=== PATIENT | female | born 1980 | race Caucasian/White ===

== ENCOUNTER 2021-02-14 07:51 | Inpatient (IN) ==
[2021-02-08 11:43] LABS: Basophils % 0.2 % (0.0-0.8); Eosinophils # 0.1 10*3/uL (0.0-0.87); Eosinophils % 1.3 % (0.00-10.9); Hematocrit 37.4 VOL% (35.7-47.0); Hemoglobin 11.7 GM/DL (12.0-16.0); Immature Granulocytes % 0.6 %; Immature Granulocytes Absolute 0.06 #; Lymphocytes # 2.6 10*3/uL (1.4-4.0); Lymphocytes % 28.5 % (21.3-54.2); Mean Corpuscular HGB Conc 31.3 GM/DL (32-36); Mean Corpuscular Volume 91.9 FL (87-102); Mean Platelet Volume 10.5 FL (9.6-12.0); Monocytes % 5.6 % (1.7-12.7); Neutrophils % 63.8 % (38.7-73.9); Platelet Count 272 T/CUMM (130-400); Red Blood Count 4.07 MC/CUMM (3.8-5.5); Red Cell Distribution Width 14.6 % (9.3-17.3); White Blood Count 9.2 T/CUMM (4-12)
[2021-02-08 12:03] LABS: Bilirubin,Urine Negative (Negative); Blood, Urine Negative (Negative); Glucose,Urine (UA) Negative (Negative); Ketones,Urine Negative (Negative); Nitrite,Urine Negative (Negative); Protein,Urine Negative; RBC,Urine 1 /HPF (0-4); Squamous Epithelial Cell,Urine Occasional /HPF (0-10); Urine Appearance CLEAR (Clear); Urine Color Yellow (Yellow); Urine Specific Gravity 1.019 (1.001-1.035); Urine Urobilinogen < 2.0 EU/DL (0.2-1.0)
[2021-02-08 12:06] LABS: Albumin 3.3 G/DL (3.4-5.0); Bilirubin,Total 0.4 MG/DL (0.20-1.00); Calcium 8.8 MG/DL (8.5-10.1); Osmolality,Calculated 277.7 MOS/KG (273-304); Potassium 4.2 MMOL/L (3.5-5.1); Risk Ratio 3.63; Total Protein 7.4 G/DL (6.4-8.2); VLDL Cholesterol 33.8 MG/DL
[2021-02-08 12:30] LABS: HIV Antigen/Antibody Result Nonreactive (Nonreactive)
[~2021-02-14 07:51] MED LIST: CLINDAMYCIN INJ 900 MG/50 ML PREMIX IV ONE
[2021-02-14] MEDS ORDERED: ACETAMINOPHEN 500 MG TABLET PO ONE (09:31)
[2021-02-14] MEDS ORDERED: DIAZEPAM 5 MG TABLET PO ONE (09:31)
[2021-02-14] MEDS ORDERED: LACTATED RINGERS 1,000 ML IV SCH ×2 (10:00→16:30)
[2021-02-14] MEDS ORDERED: propofoL 200 MG/20 ML VIAL IV ONE ×2 (13:43→15:08)
[2021-02-14] MEDS ORDERED: fentaNYL 100 MCG/2 ML VIAL ONE ×3 (13:43→14:31)
[2021-02-14] MEDS ORDERED: ROCURONIUM 50 MG/5 ML VIAL IV ONE (13:43)
[2021-02-14] MEDS ORDERED: LIDOCAINE 2% 5 ML VIAL ONE (13:43)
[2021-02-14] MEDS ORDERED: MIDAZOLAM 2 MG/2 ML VIAL ONE ×2 (13:43→14:00)
[2021-02-14] MEDS ORDERED: DESFLURANE 1 UNIT/15 MINUTE INH ONE (13:44)
[2021-02-14] MEDS ORDERED: SCOPOLAMINE 1.5 MG PATCH TRANSDERM ONE (13:59)
[2021-02-14] MEDS ORDERED: LACTATED RINGERS 1,000 ML IV ONE (15:06)
[2021-02-14] MEDS ORDERED: KETOROLAC 30 MG/1 ML VIAL ONE (15:29)
[2021-02-14] MEDS ORDERED: ONDANSETRON 4 MG/2 ML VIAL ONE (15:29)
[2021-02-14] MEDS ORDERED: GLYCOPYRROLATE 0.4 MG/2 ML VIAL ONE (15:31)
[2021-02-14] MEDS ORDERED: NEOSTIGMINE 10 MG/10 ML VIAL ONE (15:31)
[2021-02-14] MEDS ORDERED: HYDROmorphone 2 MG/1 ML VIAL ONE (15:48)
[2021-02-14] MEDS ORDERED: ACETAMINOPHEN 325 MG TABLET PO PRN (16:17)
[2021-02-14] MEDS ORDERED: BENZOCAINE/MENTHOL LOZENGE 18/BOX PO PRN (16:17)
[2021-02-14] MEDS ORDERED: BISACODYL 10 MG SUPP RECTAL PRN (16:17)
[2021-02-14 16:22] LABS: Bacteria,Urine Occasional /HPF (Few); Bilirubin,Urine Negative (Negative); Blood, Urine Negative (Negative); Glucose,Urine (UA) Negative (Negative); Ketones,Urine Negative (Negative); Mucus,Urine Occasional /LPF (Occasional); Nitrite,Urine Negative (Negative); Protein,Urine Negative; RBC,Urine 1 /HPF (0-4); Squamous Epithelial Cell,Urine Occasional /HPF (0-10); Urine Appearance CLEAR (Clear); Urine Color Yellow (Yellow); Urine Specific Gravity 1.018 (1.001-1.035); Urine Urobilinogen < 2.0 EU/DL (0.2-1.0)
[2021-02-14] MEDS ORDERED: MEPERIDINE 25 MG/1 ML VIAL IV PRN (16:24)
[2021-02-14] MEDS: HYDROmorphone 2 MG/1 ML VIAL IV PRN ×2 (18:40→22:17)
[2021-02-14] MEDS: ONDANSETRON 4 MG/2 ML VIAL IV PRN (18:41)
[2021-02-14] MEDS: IBUPROFEN 800 MG TABLET PO PRN (21:25)
[2021-02-14] MEDS: SIMETHICONE CHEW 80 MG TABLET PO PRN (21:26)
[2021-02-14] MEDS: CLINDAMYCIN INJ 900 MG/50 ML PREMIX IV SCH (22:27)
[2021-02-15] MEDS ORDERED: oxyCODONE/ACETAMINOPHEN 5-325 MG TABLET PO PRN (03:32)
[2021-02-15] MEDS: ONDANSETRON 4 MG/2 ML VIAL IV PRN (03:39)
[2021-02-15] MEDS: oxyCODONE/ACETAMINOPHEN 5-325 MG TABLET PO PRN ×4 (04:17→22:53)
[2021-02-15 05:23] LABS: Basophils % 0.1 % (0.0-0.8); Hematocrit 36.2 VOL% (35.7-47.0); Hemoglobin 11.1 GM/DL (12.0-16.0); Immature Granulocytes % 0.8 %; Immature Granulocytes Absolute 0.13 #; Lymphocytes # 1.5 10*3/uL (1.4-4.0); Lymphocytes % 8.7 % (21.3-54.2); Mean Corpuscular HGB Conc 30.7 GM/DL (32-36); Mean Corpuscular Volume 92.3 FL (87-102); Mean Platelet Volume 10.4 FL (9.6-12.0); Monocytes % 4.1 % (1.7-12.7); Neutrophils % 86.3 % (38.7-73.9); Platelet Count 282 T/CUMM (130-400); Red Blood Count 3.92 MC/CUMM (3.8-5.5); Red Cell Distribution Width 14.4 % (9.3-17.3)
[2021-02-15] MEDS: IBUPROFEN 800 MG TABLET PO PRN ×2 (06:41→15:32)
[2021-02-15] MEDS: CLINDAMYCIN INJ 900 MG/50 ML PREMIX IV SCH (06:42)
[2021-02-15] MEDS ORDERED: METOCLOPRAMIDE 10 MG TABLET PO SCH (08:00)
[2021-02-15] MEDS ORDERED: METOCLOPRAMIDE 10 MG/2 ML VIAL IV SCH (08:00)
[2021-02-15] MEDS: DOCUSATE SODIUM 100 MG CAPSULE PO PRN ×2 (09:32→22:10)
[2021-02-15] MEDS: SIMETHICONE CHEW 80 MG TABLET PO PRN ×2 (09:32→15:31)
[2021-02-15] MEDS: MAGNESIUM HYDROXIDE SUSP 30 ML UDCUP PO PRN ×2 (09:32→22:10)
[2021-02-15] MEDS ORDERED: methylPREDNISolone SOD SUC 40 MG/1 ML VIAL IV ONE (15:17)
[2021-02-15] MEDS ORDERED: hydrOXYzine HCL 25 MG TABLET PO PRN (15:17)
[2021-02-15] MEDS: METOCLOPRAMIDE 10 MG TABLET PO SCH (15:31)
[2021-02-16] MEDS: METOCLOPRAMIDE 10 MG TABLET PO SCH ×3 (00:25→15:48)
[2021-02-16] MEDS: oxyCODONE/ACETAMINOPHEN 5-325 MG TABLET PO PRN (05:24)
[2021-02-16] MEDS: DOCUSATE SODIUM 100 MG CAPSULE PO PRN (09:15)
[2021-02-16] MEDS: MAGNESIUM HYDROXIDE SUSP 30 ML UDCUP PO PRN (09:16)
[2021-02-16] MEDS: IBUPROFEN 800 MG TABLET PO PRN (09:19)
[2021-02-16 16:16] VITALS: BP 153/85
== END 2021-02-16 17:35 | disposition home or self-care (01) | DRG 513 ==
LOC: N.OR 07:51 → N.SDSINP 08:30 → N.OB 17:25
PROVIDERS: ADMIT Obstetrics & Gynecology; ATTEND Obstetrics & Gynecology

== ENCOUNTER 2021-02-22 11:22 | Inpatient (IN) ==
[2021-02-22] MEDS: LACTATED RINGERS 1,000 ML IV SCH ×2 (12:15→22:01)
[2021-02-22] MEDS: PROMETHAZINE 25 MG/1 ML VIAL IM PRN (12:34)
[2021-02-22] MEDS: MEPERIDINE 50 MG/1 ML VIAL IV PRN ×2 (12:35→17:03)
[2021-02-22 13:48] LABS: Basophils % 0.2 % (0.0-0.8); Eosinophils # 0.2 10*3/uL (0.0-0.87); Eosinophils % 2.4 % (0.00-10.9); Hematocrit 31.6 VOL% (35.7-47.0); Immature Granulocytes % 0.8 %; Immature Granulocytes Absolute 0.08 #; Lymphocytes # 1.9 10*3/uL (1.4-4.0); Lymphocytes % 18.5 % (21.3-54.2); Mean Corpuscular HGB Conc 30.4 GM/DL (32-36); Mean Corpuscular Volume 93.2 FL (87-102); Mean Platelet Volume 9.8 FL (9.6-12.0); Monocytes % 6.3 % (1.7-12.7); Neutrophils % 71.8 % (38.7-73.9); Platelet Count 280 T/CUMM (130-400); Red Blood Count 3.39 MC/CUMM (3.8-5.5); Red Cell Distribution Width 14.3 % (9.3-17.3); White Blood Count 10.2 T/CUMM (4-12)
[2021-02-22 13:50] LABS: Hemoglobin 9.6 GM/DL (12.0-16.0)
[2021-02-22] MEDS: LEVOFLOXACIN INJ 500 MG/100 ML PREMIX IV SCH (13:58)
[2021-02-22 14:00] LABS: Albumin 2.5 G/DL (3.4-5.0); Bilirubin,Total 0.5 MG/DL (0.20-1.00); Calcium 8.9 MG/DL (8.5-10.1); Osmolality,Calculated 267.2 MOS/KG (273-304); Potassium 3.8 MMOL/L (3.5-5.1); Total Protein 7.2 G/DL (6.4-8.2)
[2021-02-22] MEDS ORDERED: ACETAMINOPHEN 500 MG TABLET PO PRN (14:05)
[2021-02-22] MEDS: CLINDAMYCIN INJ 900 MG/50 ML PREMIX IV SCH ×3 (15:14→23:04)
[2021-02-22] MEDS ORDERED: oxyCODONE/ACETAMINOPHEN 5-325 MG TABLET PO PRN (19:03)
[2021-02-22] MEDS: IBUPROFEN 800 MG TABLET PO PRN (19:15)
[2021-02-22] MEDS: DOCUSATE SODIUM 100 MG CAPSULE PO PRN (19:16)
[2021-02-22] MEDS: oxyCODONE/ACETAMINOPHEN 5-325 MG TABLET PO PRN (20:51)
[2021-02-23] MEDS: oxyCODONE/ACETAMINOPHEN 5-325 MG TABLET PO PRN ×3 (03:23→18:51)
[2021-02-23] MEDS ORDERED: ONDANSETRON 4 MG/2 ML VIAL ONE (05:58)
[2021-02-23] MEDS ORDERED: KETOROLAC 30 MG/1 ML VIAL IV ONE (06:13)
[2021-02-23] MEDS: IBUPROFEN 800 MG TABLET PO PRN ×2 (06:19→20:35)
[2021-02-23] MEDS: ONDANSETRON 4 MG/2 ML VIAL IV PRN ×2 (07:29→22:30)
[2021-02-23] MEDS: MEPERIDINE 50 MG/1 ML VIAL IV PRN ×2 (07:32→22:36)
[2021-02-23] MEDS: CLINDAMYCIN INJ 900 MG/50 ML PREMIX IV SCH ×3 (07:37→23:21)
[2021-02-23] MEDS: LACTATED RINGERS 1,000 ML IV SCH (07:37)
[2021-02-23] MEDS: DOCUSATE SODIUM 100 MG CAPSULE PO PRN ×2 (09:09→19:47)
[2021-02-23] MEDS: FERROUS SULFATE 325 MG TABLET PO SCH (09:09)
[2021-02-23] MEDS: LEVOFLOXACIN INJ 500 MG/100 ML PREMIX IV SCH (15:05)
[2021-02-24] MEDS: PROMETHAZINE 25 MG/1 ML VIAL IM PRN (04:06)
[2021-02-24] MEDS: MEPERIDINE 50 MG/1 ML VIAL IV PRN (04:08)
[2021-02-24] MEDS ORDERED: KETOROLAC 30 MG/1 ML VIAL IV ONE (04:47)
[2021-02-24] MEDS: CLINDAMYCIN INJ 900 MG/50 ML PREMIX IV SCH ×3 (08:27→23:07)
[2021-02-24] MEDS: FERROUS SULFATE 325 MG TABLET PO SCH (08:37)
[2021-02-24] MEDS: DOCUSATE SODIUM 100 MG CAPSULE PO PRN ×2 (08:37→19:39)
[2021-02-24] MEDS ORDERED: KETOROLAC 10 MG TABLET PO PRN (09:40)
[2021-02-24] MEDS: oxyCODONE/ACETAMINOPHEN 5-325 MG TABLET PO PRN ×2 (12:51→18:18)
[2021-02-24] MEDS: IBUPROFEN 800 MG TABLET PO PRN ×2 (14:46→19:39)
[2021-02-24] MEDS: LEVOFLOXACIN INJ 500 MG/100 ML PREMIX IV SCH (16:18)
[2021-02-25] MEDS: oxyCODONE/ACETAMINOPHEN 5-325 MG TABLET PO PRN ×2 (01:04→11:41)
[2021-02-25] MEDS: IBUPROFEN 800 MG TABLET PO PRN ×2 (01:05→11:40)
[2021-02-25] MEDS: CLINDAMYCIN INJ 900 MG/50 ML PREMIX IV SCH (06:39)
[2021-02-25] MEDS: DOCUSATE SODIUM 100 MG CAPSULE PO PRN (08:51)
[2021-02-25] MEDS: FERROUS SULFATE 325 MG TABLET PO SCH (08:51)
[2021-02-25 13:50] VITALS: BP 123/62
[2021-02-25] MEDS: LEVOFLOXACIN INJ 500 MG/100 ML PREMIX IV SCH (15:18)
== END 2021-02-25 14:28 | disposition home or self-care (01) | DRG 813 ==
LOC: N.OB
PROVIDERS: ADMIT Obstetrics & Gynecology; ATTEND Obstetrics & Gynecology

== ENCOUNTER 2021-02-27 12:54 | Observation (INO) ==
[2021-02-27] MEDS ORDERED: MAGNESIUM HYDROXIDE SUSP 30 ML UDCUP PO PRN (13:50)
[2021-02-27] MEDS ORDERED: ACETAMINOPHEN 325 MG TABLET PO PRN (13:50)
[2021-02-27] MEDS ORDERED: BISACODYL 10 MG SUPP RECTAL PRN (13:50)
[2021-02-27] MEDS ORDERED: oxyCODONE/ACETAMINOPHEN 5-325 MG TABLET PO PRN (13:51)
[2021-02-27] MEDS ORDERED: HYDROmorphone 2 MG/1 ML VIAL ONE (15:17)
[2021-02-27] MEDS: ONDANSETRON 4 MG/2 ML VIAL IV PRN ×2 (15:20→23:34)
[2021-02-27] MEDS: LACTATED RINGERS 1,000 ML IV SCH ×2 (15:30→23:33)
[2021-02-27] MEDS ORDERED: HYDROmorphone 2 MG/1 ML VIAL IV ONE (16:26)
[2021-02-27] MEDS: IBUPROFEN 800 MG TABLET PO PRN (19:41)
[2021-02-27] MEDS: DOCUSATE SODIUM 100 MG CAPSULE PO SCH (20:12)
[2021-02-27] MEDS: CIPROFLOXACIN 500 MG TABLET PO SCH (20:12)
[2021-02-27] MEDS ORDERED: MEPERIDINE 50 MG/1 ML VIAL IV PRN (23:19)
[2021-02-28] MEDS: oxyCODONE/ACETAMINOPHEN 5-325 MG TABLET PO PRN ×3 (02:36→17:20)
[2021-02-28] MEDS: LACTATED RINGERS 1,000 ML IV SCH ×3 (06:26→22:18)
[2021-02-28] MEDS: MEPERIDINE 50 MG/1 ML VIAL IV PRN ×2 (06:40→22:18)
[2021-02-28] MEDS: ONDANSETRON 4 MG/2 ML VIAL IV PRN ×2 (06:41→17:20)
[2021-02-28] MEDS: CIPROFLOXACIN 500 MG TABLET PO SCH ×2 (08:28→20:10)
[2021-02-28] MEDS: lisinopriL 20 MG TABLET PO SCH (08:28)
[2021-02-28] MEDS: CITALOPRAM 20 MG TABLET PO SCH (08:29)
[2021-02-28] MEDS: DOCUSATE SODIUM 100 MG CAPSULE PO SCH ×2 (08:29→20:10)
[2021-02-28] MEDS: IBUPROFEN 800 MG TABLET PO PRN (17:20)
[2021-03-01] MEDS: LACTATED RINGERS 1,000 ML IV SCH (05:25)
[2021-03-01] MEDS: IBUPROFEN 800 MG TABLET PO PRN ×2 (06:02→14:57)
[2021-03-01] MEDS: oxyCODONE/ACETAMINOPHEN 5-325 MG TABLET PO PRN ×2 (06:02→14:58)
[2021-03-01] MEDS: DOCUSATE SODIUM 100 MG CAPSULE PO SCH (08:29)
[2021-03-01] MEDS: CITALOPRAM 20 MG TABLET PO SCH (08:29)
[2021-03-01] MEDS: CIPROFLOXACIN 500 MG TABLET PO SCH (08:29)
[2021-03-01] MEDS: lisinopriL 20 MG TABLET PO SCH (08:29)
[2021-03-01 12:13] VITALS: BP 126/73
== END 2021-03-01 16:25 | disposition home or self-care (01) ==
LOC: N.EDINP 12:54 → N.ED 12:54 → N.3E 17:06
PROVIDERS: ADMIT Obstetrics & Gynecology; ATTEND Obstetrics & Gynecology